=== PATIENT | female | born 1975 ===

== ENCOUNTER 2017-04-05 11:08 | Emergency (ER) | payer OTHER ==
[2017-04-05 11:36] VITALS: BP 123/45; PULSE 69; RESP 22; TEMP 98.4; O2SAT 97
[2017-04-05] MEDS ORDERED: Sodium Chloride 0.9% 1,000 ML IV SCH (11:45)
[2017-04-05] MEDS ORDERED: HYDROmorphone 0.5 mg/0.5 ml ISec ONE (11:48)
--- NOTE | 2017-04-05 11:57 | ED PDOC ---
HPI: Abdomen Time Seen by Provider: 04/05/17 11:27 Chief Complaint (Nursing): Abdominal Pain Chief Complaint (Provider): abdominal pain History Per: Patient History/Exam Limitations: no limitations Onset/Duration Of Symptoms: Days (x 1) Outside of [place] travel?: No Current Symptoms Are (Timing): Intermittent Episodes Location Of Pain/Discomfort: Epigastric (mid epigastric ) Associated Symptoms: Diarrhea, Back Pain (radiating from the abdomen ). denies : Fever, Nausea, Vomiting Additional Complaint(s): Pt is a 41 year old female, with no previous medical history, who presents to the ED with complaints of intermittent episodes of mid epigastric abdominal pain associated with diarrhea since this morning. Patient ranks pain as a 10/10 and reports radiating into the back. She denies any nausea, vomiting or fevers. Patient reports to taking Tylenol to no relief. Pt states she is not . Of note, patient also complains of a cough productive of yellow sputum ongoing for the past week. PMD: none provided Past Medical History Reviewed: Historical Data, Nursing Documentation, Vital Signs Vital Signs: Last Vital Signs Temp 98.4 F 04/05/17 11:28 Pulse 69 04/05/17 11:28 Resp 22 04/05/17 11:28 BP 123/45 L 04/05/17 11:28 Pulse Ox 97 04/05/17 14:03 - Medical History PMH: Asthma - Surgical History Surgical History: Cholecystectomy Other surgeries: hernia repair - Family History Family History: States: Unknown Family Hx - Social History Current smoker - smoking cessation education provided: No Ex-Smoker (has not smoked in the last 12 months): No - Immunization History Hx Tetanus Toxoid Vaccination: No Hx Influenza Vaccination: No Hx Pneumococcal Vaccination: No - Home Medications Home Medications: Ambulatory Orders Medication Instructions Recorded Albuterol HFA [Ventolin HFA 90 2 puff IH [id number] #1 puff 03/08/16 mcg/actuation (8 g)] Benzonatate [Tessalon Perles] 100 mg PO Q6 #20 sgl 03/08/16 Albuterol HFA [Ventolin HFA 90 2 puff IH Q6 PRN #1 inhaler 04/05/17 mcg/actuation (8 g)] Azithromycin [Zithromax Tri-Fran] 1 tab PO DAILY #3 tablet 04/05/17 Ranitidine HCl [Zantac] 1 tab PO BID #40 tablet 04/05/17 - Allergies Allergies/Adverse Reactions: Allergies Allergy/AdvReac Type Severity Reaction Status Date / Time No Known Allergies Allergy Verified 03/08/16 20:49 Review of Systems ROS Statement: Except As Marked, All Systems Reviewed And Found Negative Constitutional: Negative for: Fever, Chills Respiratory: Positive for: Cough, Sputum (yellow ) Gastrointestinal: Positive for: Abdominal Pain, Diarrhea. Negative for: Nausea , Vomiting Musculoskeletal: Positive for: Back Pain Physical Exam - Reviewed Nursing Documentation Reviewed: Yes Vital Signs Reviewed: Yes - Physical Exam Appears: Positive for: Well, Non-toxic, No Acute Distress Head Exam: Positive for: NORMOCEPHALIC Skin: Positive for: Normal Color, Warm, Dry Eye Exam: Positive for: Normal appearance Neck: Positive for: Normal Cardiovascular/Chest: Positive for: Regular Rate, Rhythm Respiratory: Positive for: CNT, Normal Breath Sounds Gastrointestinal/Abdominal: Positive for: Bowel Sounds, Soft, Tenderness (mid epigastric tenderness ) Back: Positive for: Normal Inspection. Negative for: L CVA Tenderness, R CVA Tenderness, Vertebral Tenderness Rectal: Positive for: Deferred Extremity: Positive for: Normal ROM Neurologic/Psych: Positive for: Alert, Oriented. Negative for: Motor/Sensory Deficits - Laboratory Results Result Diagrams: 04/05/17 12:15 04/05/17 12:15 - ECG O2 Sat by Pulse Oximetry: 97 (RA) Pulse Ox Interpretation: Normal Medical Decision Making Medical Decision Making: Initial Impression: Abdominal Pain with differentials including but not limited to gastritis, gastroenteritis, peptic ulcer disease Initial Plan: * labs * lipase * urine * x-ray obstructive series * pepcid * IV NS 1,000 ml at 500 ml/hr * urine culture * urinalysis * dilaudid * reevaluation 1:56 PM-- Labs are unremarkable. Pt feels much better after receiving fluids and pepcid. Pt states no longer with abd pain. Pt with so much coughing over last 1-2 weeks, I believe this is the source of her abd and upper back pain. Will d/c on pepcid and Zithromax Scribe Attestation: Documented by Shyann Bobo, acting as a scribe for Len Hernandez D.O. Provider Scribe Attestation: All medical record entries made by the Scribe were at my direction and personally dictated by me. I have reviewed the chart and agree that the record accurately reflects my personal performance of the history, physical exam, medical decision making, and the department course for this patient. I have also personally directed, reviewed, and agree with the discharge instructions and disposition. Disposition - Clinical Impression Clinical Impression: Abdominal muscle strain, Bronchitis - Patient ED Disposition Is Patient to be Admitted: No Counseled Patient/Family Regarding: Studies Performed, Diagnosis, Need For Followup, Rx Given - Disposition Referrals: [facility] [Outside] Disposition: Routine/Home Disposition Time: 13:58 Condition: IMPROVED Additional Instructions: Rosangela Raphael, thank you for letting us take care of you today. Return to the ER if your symptoms worsen, or if any problems. Take the medication listed below as prescribed. Please call our [facility] next week for make a follow up appointment. Prescriptions: Albuterol HFA [Ventolin HFA 90 mcg/actuation (8 g)] 2 puff IH Q6 PRN #1 inhaler PRN Reason: Cough Azithromycin [Zithromax Tri-Fran] 1 tab PO DAILY #3 tablet Ranitidine HCl [Zantac] 1 tab PO BID #40 tablet Instructions: Acute Bronchitis (ED), Abdominal Pain (ED) Forms: [employer] (Serbian) Print Language: BULGARIAN - POA Present On Arrival: None
[2017-04-05] MEDS ORDERED: HYDROmorphone 0.5 mg/0.5 ml ISec IVP STA (12:30)
[2017-04-05 12:31] LABS: BASO # 0.1 K/uL (0.0-0.2); BASO % 0.8 % (0.0-2.0); EOS # 0.6 K/uL (0.0-0.7); EOS % 7.3 % (0.0-4.0); HEMATOCRIT 37.1 % (34.0-47.0); LYMPH # 2.1 K/uL (1.0-4.3); LYMPH % 25.7 % (20.0-40.0); MEAN CELL VOLUME 89.4 fl (81.0-99.0); MEAN CORPUSCULAR HEMOGLOBIN 30.1 pg (27.0-31.0); MEAN CORPUSCULAR HGB CONC 33.7 g/dL (33.0-37.0); MEAN PLATELET VOLUME 8.6 fl (7.2-11.7); MONO # 0.5 K/uL (0.0-0.8); MONO % 6.7 % (0.0-10.0); NEUT # 4.8 K/uL (1.8-7.0); NEUT % 59.5 % (50.0-75.0); RED CELL DISTRIBUTION WIDTH 13.5 % (11.5-14.5)
[2017-04-05 12:33] LABS: RBC URINE < 1 /hpf (0-3); URINE BACTERIA RARE (<OCC); URINE BILIRUBIN NEGATIVE (NEGATIVE); URINE BLOOD NEGATIVE (NEGATIVE); URINE COLOR YELLOW (YELLOW); URINE GLUCOSE (UA) NEG (Normal); URINE KETONE NEGATIVE (NEGATIVE); URINE LEUKOCYTE ESTERASE NEG Leu/uL (Negative); URINE PROTEIN NEGATIVE (NEGATIVE); URINE UROBILINOGEN 0.2-1.0 mg/dL (0.2-1.0)
[2017-04-05 12:41] LABS: ALB/GLOB RATIO 1.2 (1.0-2.1); ALKALINE PHOSPHATASE 121 U/L (38-126); ALT/SGPT 58 U/L (9-52); AST/SGOT 61 U/L (14-36); BILIRUBIN,TOTAL 0.8 mg/dl (0.2-1.3); BLOOD UREA NITROGEN 13 mg/dl (7-17); CALCIUM 8.9 mg/dL (8.4-10.2); CARBON DIOXIDE 24 mmol/L (22-30); CHLORIDE 106 mmol/L (98-107); GFR AFRICAN-AMERICAN > 60; GLUCOSE,RANDOM 100 mg/dL (65-105); LIPASE 117 U/L (23-300); POTASSIUM 4.2 MMOL/L (3.6-5.0); SODIUM 141 mmol/l (132-148); TOTAL PROTEIN 7.8 G/DL (6.3-8.2)
--- NOTE | 2017-04-05 15:54 | RAD ---
HISTORY: c/o cough and c/o abd pain COMPARISON: No prior. FINDINGS: BOWEL: Normal. No obstruction. No free air. Cholecystectomy. BONES: Normal. OTHER FINDINGS: None. IMPRESSION: No active disease.
== END 2017-04-05 14:24 | disposition home or self-care (01) ==
LOC: H.ER 11:08
DX: R10.9 Unspecified abdominal pain (principal); J40 Bronchitis, not specified as acute or chronic; R05 Cough; J45.909 Unspecified asthma, uncomplicated; Z87.891 Personal history of nicotine dependence

== ENCOUNTER 2018-08-05 01:10 | Emergency (ER) | payer SELFPAY ==
[2018-08-05 01:32] VITALS: RESP 17; O2SAT 100
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
[2018-08-05 04:17] VITALS: BP 118/72; PULSE 65; TEMP 98.5
--- NOTE | 2018-08-05 09:04 | RAD ---
PROCEDURE: Radiographs of the left humerus. HISTORY: fall, pain COMPARISON: None. FINDINGS: BONES: Normal. No fracture or focal lesion. SOFT TISSUES: Normal. OTHER FINDINGS: None. IMPRESSION: Normal radiographs of left humerus.
--- NOTE | 2018-08-05 09:05 | RAD ---
Date of service: 08/05/2018 PROCEDURE: HISTORY: fall, pain COMPARISON: None TECHNIQUE: AP pelvis and frog's leg view. FINDINGS: Mild bilateral superolateral hip joint space narrowing. Trace asymmetrical left superolateral acetabular spurring. No fracture or lytic lesion seen. Minimal inferior left sacroiliac sclerotic arthrosis. Right L4-5 endplate spondylosis. Trace pubic symphyseal joint hypertrophic arthrosis. Left hemipelvic phleboliths. IMPRESSION: No fracture, dislocation or lytic lesion. . Minimal mild degenerative changes as referenced above.
== END 2018-08-05 04:17 | disposition home or self-care (01) ==
LOC: H.ER 01:10
DX: S49.92XA Unspecified injury of left shoulder and upper arm, initial encounter (principal); S79.912A Unspecified injury of left hip, initial encounter; S79.922A Unspecified injury of left thigh, initial encounter; W19.XXXA Unspecified fall, initial encounter; Y92.89 Other specified places as the place of occurrence of the external cause
CPT/HCPCS: 73060; 73502; 81025; 96372; 99285; J1885